=== PATIENT | female | born 1975 | race Caucasian/White ===

== ENCOUNTER 2019-10-23 20:49 | Emergency (ER) | payer OTHER ==
[2019-10-23] MEDS ORDERED: DUONEB 0.5-3 MG/3 ml Neb IH ONE ×3 (21:27→21:36)
[2019-10-23 21:57] LABS: INFLUENZA A POSITIVE (NEGATIVE); INFLUENZA B NEGATIVE (NEGATIVE); RESPIRATORY SYNCTIAL VIRUS NEGATIVE (Negative)
[2019-10-23 22:03] VITALS: O2SAT 98
[2019-10-23] MEDS ORDERED: Tamiflu 75MG Capsule PO ONE ×2 (22:32→22:34)
--- NOTE | 2019-10-23 22:32 | ERPHSYRPT ---
- History of Present Illness Time Seen by Provider: 10/23/19 21:30 Patient Subjective Stated Complaint: pt states that she went to the doctor sunday10/11/19 and was put on antibiotic for a left ear infection and upper respiratory infection, pt states that she was tested for the flu and strep and both came back negative, pt states that she has a pressure in her chest when she breathes, pt states that it feels constricting, pt states that she went to work today and felt like she was getting better, pt states that she began to feel bad around 1600 Triage Nursing Assessment: pt ambulated into the er, pt is axo x3, pt is hypertensive, tachycardic, red throat with excudate, wheezing in all lobes, febrile, wet cough present Physician History: Patient is a 44-year-old female who has been exposed to flu B from a daughter who presents with cough sore throat. She has been treated with amoxicillin has 3 more days left and a Z-Richard. She saw the physician approximately a week ago at that time had a sore throat and a harsh cough and was negative for flu. Timing/Duration: day(s) (7) Cough Quality/Degree: productive cough Possible Cause: occasional episodes Modifying Factors: Improves With: nothing Associated Symptoms: fever, chills, cough, sore throat Allergies/Adverse Reactions: aspirin Allergy (Verified 10/23/19 20:55) Home Medications: Albuterol Sulfate [Proair Digihaler] 2 puff IH Q4H PRN PRN 10/23/19 [History] Amoxicillin/Potassium Clav [Amox-Clav 875-125 mg Tablet] 1 tab PO BID 10/23/19 [ History] Benzonatate 200 mg PO TID 10/23/19 [History] Fluticasone Propion/Salmeterol [Fluticasone-Salmeterol 250-50] 1 puff IH BID [History] Hx Tetanus, Diphtheria Vaccination/Date Given: Yes Hx Influenza Vaccination/Date Given: No Hx Pneumococcal Vaccination/Date Given: No - Review of Systems Constitutional: No Fever, No Chills Eyes: No Symptoms Ears, Nose, & Throat: Nose Congestion, Throat Pain, Throat Swelling, Painful Swallowing Respiratory: Cough, No Dyspnea Cardiac: No Chest Pain, No Edema, No Syncope Abdominal/Gastrointestinal: No Abdominal Pain, No Nausea, No Vomiting, No Diarrhea Genitourinary Symptoms: No Dysuria Musculoskeletal: No Back Pain, No Neck Pain Skin: No Rash Neurological: No Dizziness, No Focal Weakness, No Sensory Changes Psychological: No Symptoms Endocrine: No Symptoms All Other Systems: Reviewed and Negative - Past Medical History Neurological History: No Pertinent History Cardiac History: No Pertinent History Respiratory History: Asthma Endocrine Medical History: No Pertinent History Musculoskeletal History: Degenerative Disk Disease - Past Surgical History Past Surgical History: Yes Female Surgical History: Hysterectomy, Section - Social History Smoking Status: Never smoker Exposure to second hand smoke: No Drug Use: none Patient Lives Alone: No - Female History Hx Now: No - Nursing Vital Signs Nursing Vital Signs: Initial Vital Signs Temperature 100.5 F 10/23/19 21:01 Pulse Rate 104 H 10/23/19 21:01 Respiratory Rate 15 10/23/19 21:01 Blood Pressure 145/79 10/23/19 21:01 O2 Sat by Pulse Oximetry 100 10/23/19 21:01 Pain Scale Pain Intensity 6 - Physical Exam General Appearance: moderate distress, alert Eye Exam: PERRL/EOMI, eyes nml inspection Ears, Nose, Throat Exam: TMs normal, moist mucous membranes, pharyngeal erythema Neck Exam: normal inspection, non-tender, supple, full range of motion Respiratory Exam: crackles/rales, rhonchi, No respiratory distress Cardiovascular Exam: regular rate/rhythm, normal heart sounds Gastrointestinal/Abdomen Exam: soft, No tenderness Back Exam: normal inspection, No CVA tenderness, No vertebral tenderness Extremity Exam: normal inspection, normal range of motion Neurologic Exam: alert, oriented x 3, cooperative, normal mood/affect, sensation nml, No motor deficits Skin Exam: normal color, warm, dry, No rash Lymphatic Exam: No adenopathy SpO2: 98 - Course Nursing assessment & vital signs reviewed: Yes - Radiology Exams Chest X-ray Interpretation: Interpreted by me, Pneumonia (Right lower lobe) Ordered Tests: Active Orders 24 hr Category Date Time Status CHEST 1 VIEW (PORTABLE) Stat Exams 10/23/19 21:25 Taken Respiratory Therapy Assessment DAILY RT 10/23/19 21:40 Completed Medication Summary Discontinued Medications Generic Name Dose Route Start Last Admin Trade Name Freq PRN Reason Stop Dose Admin Albuterol/Ipratropium 3 ml 10/23/19 21:27 10/23/19 21:37 Duoneb 0.5-3 Mg/3 Ml Neb IH 10/23/19 21:28 3 ml STAT ONE Administration Albuterol/Ipratropium 3 ml 10/23/19 21:27 10/23/19 21:42 Duoneb 0.5-3 Mg/3 Ml Neb IH 10/23/19 21:28 Not Given STAT ONE Albuterol/Ipratropium Confirm 10/23/19 21:36 Duoneb 0.5-3 Mg/3 Ml Neb Administered 10/23/19 21:37 Dose 3 ml IH .STK-MED ONE Lab/Rad Data: Laboratory Results 10/23/19 10/23/19 Range/Units 21:50 21:30 Influenza Type A Ag POSITIVE (NEGATIVE) Influenza Type B Ag NEGATIVE (NEGATIVE) RSV (PCR) NEGATIVE (Negative) Group A Strep Antibody NEGATIVE (NEGATIVE) - Progress Progress: unchanged Air Movement: good Blood Culture(s) Obtained: No Antibiotics given: No - Departure Departure Disposition: Home Clinical Impression: Influenza A, Right lower lobe pneumonia Condition: Stable Critical Care Time: No Referrals: BUBBA CHAMBERLAIN MD [Primary Care Provider] - Instructions: Pneumonia, Adult (DC), Flu, Adult (DC) Prescriptions: Oseltamivir 75 mg [Tamiflu 75MG Capsule] 75 mg PO BID #10 cap
[2019-10-23 22:50] VITALS: BP 109/70; PULSE 103
--- NOTE | 2019-10-24 08:44 | XRAY ---
Indication: Fever, cough, and sore throat. Comparison: December 02, 2007. Portable chest demonstrates new right base infiltrate versus atelectasis. Remaining heart, left lung, and bony thorax normal.
== END 2019-10-23 22:50 | disposition home or self-care (01) ==
LOC: ED 20:49
DX: J09.X1 Influenza due to identified novel influenza A virus with pneumonia (principal); J18.9 Pneumonia, unspecified organism
CPT/HCPCS: 71045; 87631; 87651; 94640; 99284; A9270-GY